=== PATIENT | male | born 1990 | race American Indian/Alaskan Native ===

== ENCOUNTER 2017-08-17 00:21 | Emergency (ER) | payer MEDICAID ==
[2017-08-17] MEDS ORDERED: MOTRIN PO ONE (00:45)
[2017-08-17 01:09] LABS: Hematocrit 42.8 % (35.5-45.6); Hemoglobin 14.4 gm/dl (11.8-15.2); Mean Corpuscular HGB Conc 34 % (32-34); Mean Corpuscular Hemoglobin 30 pg (28-32); Mean Corpuscular Volume 89 fl (84-94); Platelet Count 309 K/mm3 (140-440); Red Blood Count 4.83 M/mm3 (3.65-5.03); Red Cell Distribution Width 13.7 % (13.2-15.2); White Blood Count 4.2 K/mm3 (4.5-11.0)
[2017-08-17 01:11] LABS: Basophils % (Auto) 2.6 % (0.0-1.8); Eosinophils % (Auto) 1.6 % (0.0-4.3)
[2017-08-17 01:31] LABS: Anion Gap 21 mmol/L; BUN/Creatinine Ratio 12; Blood Urea Nitrogen 15 mg/dL (9-20); Calcium 8.9 mg/dL (8.4-10.2); Carbon Dioxide 21 mmol/L (22-30); Chloride 101.8 mmol/L (98-107); Potassium 3.9 mmol/L (3.6-5.0); Sodium 140 mmol/L (137-145)
[2017-08-17 01:37] LABS: Urine Drugs of Abuse Note Disclamer
[2017-08-17 01:51] LABS: Sperm,Urine 3+ /HPF (NP)
[2017-08-17 01:55] LABS: Bilirubin,Urine NEG (Negative)
[2017-08-17 01:56] LABS: Ketones,Urine Negative (Negative); Urobilinogen,Urine < 0.2 mg/dL (<2.0)
[2017-08-17 01:57] LABS: Leukocyte Esterase,Urine Negative (Negative); Nitrite,Urine Negative (Negative); Protein,Urine <30 mg dL mg/dL (Negative)
[2017-08-17 02:57] LABS: Glucose 85 mg/dL (75-100)
--- NOTE | 2017-08-17 04:52 | Emergency Department Report ---
HPI - General Chief Complaint: Psych Time Seen by Provider: 08/17/17 04:38 - HPI HPI: This is a 27-year-old male who presents to the emergency department with a complaint of a one-day history of suicidal and homicidal ideations. He denies any specific plan as to what he would do to hurt himself or other people. He also complains of some auditory hallucinations. He has a history of schizophrenia and says that he is compliant with his Risperdal and Zoloft. He does not have a psychiatrist for follow-up. As a secondary complaint, he says he has been having some right lower pain for the past 2 weeks. He denies any problems with bowel or bladder, numbness or paresthesias or any neurological deficits. He has not taken anything for his symptoms prior to presentation. ED Past Medical Hx - Past Medical History Hx Seizures: Yes Hx Psychiatric Treatment: Yes (schizophrenia) Hx Asthma: Yes - Surgical History Additional Surgical History: left knee surgery - Social History Smoking Status: Current Every Day Smoker Substance Use Type: Cocaine - Medications Home Medications: Home Medications Medication Instructions Recorded Confirmed Last Taken Type RisperDAL 6 mg PO DAILY 08/17/17 08/17/17 Unknown History Zoloft 40 mg PO DAILY 08/17/17 08/17/17 Unknown History ED Review of Systems ROS: Stated complaint: MH & BACK PAINS Other details as noted in HPI Comment: All other systems reviewed and negative Constitutional: denies: chills, fever Eyes: denies: eye pain, eye discharge, vision change ENT: denies: ear pain, throat pain Respiratory: denies: cough, shortness of breath, wheezing Cardiovascular: denies: chest pain, palpitations Gastrointestinal: denies: abdominal pain, nausea, diarrhea Genitourinary: denies: urgency, dysuria Musculoskeletal: back pain. denies: arthralgia Skin: denies: rash, lesions Neurological: denies: headache, numbness Psychiatric: auditory hallucinations, homicidal thoughts, suicidal thoughts Physical Exam - Physical Exam Vital Signs: Vital Signs 08/17/17 08/17/17 00:25 04:37 Temperature 97.6 F Pulse Rate 79 Respiratory 18 18 Rate Blood Pressure 115/75 O2 Sat by Pulse 97 98 Oximetry Physical Exam: GENERAL: The patient is well-developed well-nourished. HENT: Normocephalic. Atraumatic. Patient has moist mucous membranes. EYES: Extraocular motions are intact. Pupils equal reactive to light bilaterally. NECK: Supple. Trachea is midline. CHEST/LUNGS: Clear to auscultation. There is no respiratory distress noted. HEART/CARDIOVASCULAR: Regular. There is no tachycardia. There is no gallop rub or murmur. ABDOMEN: Abdomen is soft, nontender. Patient has normal bowel sounds. There is no abdominal distention. SKIN: Skin is warm and dry. NEURO: The patient is awake, alert, and oriented. The patient is cooperative. The patient has no focal neurologic deficits. The patient has normal speech. MUSCULOSKELETAL: There is no tenderness or deformity. There is no limitation range of motion. There is no evidence of acute injury. BACK: No midline thoracic or lumbar tenderness to palpation or deformity. There is some reproducible right lumbar paraspinal tenderness with some associated musculature. ED Course Vital Signs 08/17/17 08/17/17 00:25 04:37 Temperature 97.6 F Pulse Rate 79 Respiratory 18 18 Rate Blood Pressure 115/75 O2 Sat by Pulse 97 98 Oximetry ED Medical Decision Making - Lab Data Result diagrams: 08/17/17 00:48 08/17/17 00:48 - Medical Decision Making 27-year-old male presents with a history of schizophrenia and a one-day history of suicidal and homicidal ideations. For this reason he has been made a 1013. His labs are mostly unremarkable except for positive urine drug screen for cocaine which he admits to using earlier today. He complains of some back pain but there is no midline tenderness to palpation, step-off or deformity. There is some reproducible right paraspinal lumbar tenderness with associated musculature. He denies any problems with bowel or bladder, numbness or paresthesias. Vital signs stable including being afebrile. He appears low suspicion for any of the emergent back condition such as cauda equina, epidural abscess or cord compression syndrome. He appears stable and medically cleared for psychiatric placement. - Differential Diagnosis schizophrenia, schizoaffective, bipolar, substance abuse, muscle spasm Critical Care Time: No Critical care attestation.: If time is entered above; I have spent that time in minutes in the direct care of this critically ill patient, excluding procedure time. ED Disposition Clinical Impression: Suicidal ideations, Homicidal ideations Schizophrenia Qualifiers: Schizophrenia type: unspecified Qualified Code(s): F20.9 - Schizophrenia, unspecified Disposition: DC/TX-65 PSY HOSP/PSY UNIT Is pt being admited?: No Condition: Stable Referrals: PRIMARY CARE, [Primary Care Provider] - 3-5 Days Time of Disposition: 04:52
[2017-08-17] MEDS ORDERED: RISPERIDONE 6 MG PO SCH (10:00)
[2017-08-17] MEDS ORDERED: ZOLOFT PO SCH (10:00)
[2017-08-17] MEDS ORDERED: RisperDAL PO SCH (10:00)
[2017-08-17] MEDS ORDERED: SERTRALINE PO SCH (10:00)
[2017-08-17 11:43] VITALS: BP 134/66
== END 2017-08-17 20:38 ==
LOC: ED 00:21 → EEVIPCON 00:21 → ED 20:38
DX: R45.851 Suicidal ideations (principal); R45.850 Homicidal ideations; J45.909 Unspecified asthma, uncomplicated; F17.200 Nicotine dependence, unspecified, uncomplicated
CPT/HCPCS: 36415; 80048; 80307; 81001; 85025; 99285; G0480; 80320

== ENCOUNTER 2017-09-02 01:06 | Emergency (ER) | payer MEDICAID ==
[2017-09-02 01:44] LABS: Basophils % (Auto) 1.4 % (0.0-1.8); Eosinophils % (Auto) 2.5 % (0.0-4.3); Mean Corpuscular HGB Conc 34 % (32-34); Mean Corpuscular Hemoglobin 30 pg (28-32); Mean Corpuscular Volume 88 fl (84-94); Platelet Count 316 K/mm3 (140-440); Red Cell Distribution Width 13.8 % (13.2-15.2); White Blood Count 7.7 K/mm3 (4.5-11.0)
[2017-09-02 01:59] LABS: Urine Drugs of Abuse Note Disclamer
[2017-09-02 02:13] LABS: Potassium 3.9 mmol/L (3.6-5.0); Sodium 139 mmol/L (137-145)
[2017-09-02 02:14] LABS: Anion Gap 18 mmol/L; BUN/Creatinine Ratio 12; Blood Urea Nitrogen 13 mg/dL (9-20); Calcium 9.9 mg/dL (8.4-10.2); Carbon Dioxide 26 mmol/L (22-30); Chloride 98.8 mmol/L (98-107); Glucose 86 mg/dL (75-100)
[2017-09-02 02:23] LABS: Bilirubin,Urine NEG (Negative); Blood,Urine NEG (Negative); Ketones,Urine 20 mg/dL (Negative); Leukocyte Esterase,Urine NEG (Negative); Mucus,Urine FEW /HPF; Nitrite,Urine NEG (Negative); Protein,Urine <15 mg/dL mg/dL (Negative); Urobilinogen,Urine < 2.0 mg/dL (<2.0); WBC,Urine < 1.0 /HPF (0.0-6.0)
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
--- NOTE | 2017-09-02 22:10 | Consultation ---
History of Present Illness - Reason for Consult Reason for consult: recent passive SI after being kicked out of long-term Medications and Allergies Allergies Allergy/AdvReac Type Severity Reaction Status Date / Time No Known Allergies Allergy Verified 09/14/15 04:18 Home Medications Medication Instructions Recorded Confirmed Last Taken Type RisperDAL 6 mg PO DAILY 08/17/17 08/17/17 Unknown History Zoloft 50 mg PO DAILY 08/17/17 08/17/17 Unknown History Mental Status Exam - Vital signs Last Vital Signs Temp 98.4 F 09/02/17 12:02 Pulse 83 09/02/17 12:02 Resp 20 09/02/17 14:00 BP 134/79 09/02/17 12:02 Pulse Ox 100 09/02/17 14:00 Results Result Diagrams: 09/02/17 01:30 09/02/17 01:30 All other labs normal. Assessment and Plan Assessment and plan: CHIEF COMPLAINT IN PATIENTS WORDS: HISTORY OF PRESENT ILLNESS: This is a 27-year-old male with a reported past psychiatric history of schizophrenia who now presents secondary to recent expression of suicidal thoughts after being kicked out of the long-term. PSYCHIATRIC REVIEW OF SYSTEMS: Substance: UDS+ for cocaine Detoxification/Withdrawal: none noted Depression: Withdrawn, isolated, low moods. Sweta: no labile moods, not hyperverbal, no flight of ideas Psychosis: no AVH, no thought disorder noted, no paranoia/grandiosity/erotomania Anxiety/ OCD/ PTSD: denies somatic symptoms, flashbacks, nightmares, avoidance, panic attacks Suicidality: passive SI Other Self-Injurious Behavior: none currently, no recent SIB noted Violent/ Aggressive Behavior: none noted CURRENT MEDICATIONS: Medication Reconciliation pending Patient reports being on Risperidone and Zoflot ALLERGIES: NKDA PAST PSYCHIATRIC HISTORY: Inpatient: previous IP admissions Outpatient: has psychiatrist Prior Suicide Attempts: unknown Prior Self-Injurious Behaviors: unknown PAST PSYCHIATRIC MEDICATION TRIALS: Risperidone Zoloft MEDICAL HISTORY: denies MENTAL STATUS EXAM: General Appearance: Dressed in hospital gown, no acute distress Sensorium/Consciousness: alert and responding to external stimuli Eye Contact: limited Attitude / Behavior: cooperative, but guarded Psychomotor & Musculoskeletal Activity: WNL Mood: fine Affect: constricted Speech / Language: normal Thought Processes: organized, logical, linear, goal directed Thought Content: passove SI, no HI Perception: no AVH Orientation: person, place, time, situation Judgment What would you do if you smelled smoke in a crowded movie theater?: poor/impulsive Insight: poor Intelligence Vocabulary, general fund of knowledge, educational level: Average Capacity of ADLs: Independent STRENGTHS: PSYCHOSOCIAL AND ENVIRONMENTAL STRESSORS: ASSESSMENT: Schizophrenia R/O SIPD PLAN OF CARE: Refer patient for inpatient hospitalization Nursing to reconcile home medications If nursing unable to reconcile the medication, restart risperidone and sertraline at a low dose
[2017-09-03 03:59] VITALS: BP 121/62
== END 2017-09-03 03:59 ==
LOC: ED 01:06
DX: F29 Unspecified psychosis not due to a substance or known physiological condition (principal); F14.10 Cocaine abuse, uncomplicated; F20.9 Schizophrenia, unspecified; R45.851 Suicidal ideations; R45.850 Homicidal ideations; J45.909 Unspecified asthma, uncomplicated; F17.200 Nicotine dependence, unspecified, uncomplicated
CPT/HCPCS: 36415; 80048; 80307; 81001; 85025; 99285; G0480; 80320

== ENCOUNTER 2017-09-24 12:30 | Emergency (ER) | payer MEDICAID ==
[2017-09-24] MEDS ORDERED: BENADRYL IM ONE (13:57)
[2017-09-24 14:01] LABS: Urine Drugs of Abuse Note Disclamer
[2017-09-24 14:10] LABS: Bilirubin,Urine NEG (Negative); Blood,Urine NEG (Negative); Ketones,Urine NEG (Negative); Leukocyte Esterase,Urine NEG (Negative); Mucus,Urine FEW /HPF; Nitrite,Urine NEG (Negative); Protein,Urine <15 mg/dL mg/dL (Negative); Urobilinogen,Urine < 2.0 mg/dL (<2.0)
[2017-09-24 14:29] LABS: Eosinophils % (Auto) 4.7 % (0.0-4.3); Hematocrit 46.2 % (35.5-45.6); Hemoglobin 15.4 gm/dl (11.8-15.2); Mean Corpuscular HGB Conc 33 % (32-34); Mean Corpuscular Hemoglobin 30 pg (28-32); Mean Corpuscular Volume 90 fl (84-94); Platelet Count 290 K/mm3 (140-440); Red Blood Count 5.13 M/mm3 (3.65-5.03); Red Cell Distribution Width 14.5 % (13.2-15.2); White Blood Count 3.7 K/mm3 (4.5-11.0)
[2017-09-24 14:54] LABS: Anion Gap 20 mmol/L; BUN/Creatinine Ratio 9; Blood Urea Nitrogen 10 mg/dL (9-20); Calcium 9.2 mg/dL (8.4-10.2); Carbon Dioxide 24 mmol/L (22-30); Glucose 82 mg/dL (75-100); Potassium 4.5 mmol/L (3.6-5.0); Sodium 141 mmol/L (137-145)
[2017-09-24 15:29] LABS: INR 0.98 (0.87-1.13)
--- NOTE | 2017-09-24 19:05 | Emergency Department Report ---
HPI - General Chief Complaint: Allergic Reaction ED Past Medical Hx - Past Medical History Hx Seizures: Yes Hx Psychiatric Treatment: Yes (schizophrenia) Hx Asthma: Yes - Surgical History Additional Surgical History: left knee surgery - Social History Smoking Status: Never Smoker Substance Use Type: None - Medications Home Medications: Home Medications Medication Instructions Recorded Confirmed Last Taken Type RisperDAL 6 mg PO DAILY 08/17/17 09/15/17 Unknown History Zoloft 50 mg PO DAILY 08/17/17 09/15/17 Unknown History ED Review of Systems ROS: Stated complaint: MUSCLE SPASM Other details as noted in HPI Physical Exam - Physical Exam Vital Signs: Vital Signs 09/24/17 13:33 Temperature 98 F Pulse Rate 103 H Respiratory 16 Rate Blood Pressure 125/71 O2 Sat by Pulse 100 Oximetry ED Course Vital Signs 09/24/17 13:33 Temperature 98 F Pulse Rate 103 H Respiratory 16 Rate Blood Pressure 125/71 O2 Sat by Pulse 100 Oximetry ED Medical Decision Making - Lab Data Result diagrams: 09/24/17 Unknown 09/24/17 13:41 Critical care attestation.: If time is entered above; I have spent that time in minutes in the direct care of this critically ill patient, excluding procedure time. ED Disposition Condition: Stable Referrals: PRIMARY CARE, [Primary Care Provider] - 3-5 Days
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
[2017-09-24 19:53] LABS: Anion Gap 17 mmol/L; BUN/Creatinine Ratio 8; Blood Urea Nitrogen 10 mg/dL (9-20); Calcium 9.1 mg/dL (8.4-10.2); Carbon Dioxide 26 mmol/L (22-30); Chloride 105.6 mmol/L (98-107); Glucose 58 mg/dL (75-100); Potassium 4.2 mmol/L (3.6-5.0); Sodium 144 mmol/L (137-145)
[2017-09-24 19:56] LABS: Alanine Aminotransferase 21 units/L (7-56); Albumin 3.9 g/dL (3.9-5); Albumin/Globulin Ratio 1.7 %; Alkaline Phosphatase 71 units/L (35-129); Total Protein 6.2 g/dL (6.3-8.2)
[2017-09-24 19:58] LABS: Bilirubin,Direct < 0.2 mg/dL (0-0.2); Bilirubin,Indirect 0.1 mg/dL
[2017-09-24 22:06] LABS: Urine Drugs of Abuse Note Disclamer
[2017-09-24 22:14] LABS: Bilirubin,Urine NEG (Negative); Blood,Urine NEG (Negative); Ketones,Urine NEG (Negative); Leukocyte Esterase,Urine NEG (Negative); Mucus,Urine FEW /HPF; Nitrite,Urine NEG (Negative); Protein,Urine <15 mg/dL mg/dL (Negative); Urobilinogen,Urine < 2.0 mg/dL (<2.0); WBC,Urine < 1.0 /HPF (0.0-6.0)
[2017-09-25 10:01] VITALS: BP 120/68
--- NOTE | 2017-09-25 12:31 | Consultation ---
History of Present Illness - Reason for Consult Consult date: 09/25/17 Reason for consult: Mental Health Evaluation Requesting physician: SCOTT ADLER - Chief Complaint Chief complaint: "The voices are bad" - History of Present Psychiatric Illness 27 y.o. AA male presenting to [facility] for for SI's and overdose. Today patient is calm and cooperative, but withdrawn during the assessment. He stated taking 20 Lexapro pills to kill himself. He stated that the voices was telling him to do it. He stated that he hear voices "all the time." He stated that he didn't have any other choices, but to . He stated previous suicide attempts in the past. He stated that he is still suicidal with a plan to walk into ongoing traffic. He stated being noncompliant with his medications and was recently discharged from a mental health facility. He denies HI's and VH's. He denies sleep disturbance and a poor appetite. He admit to using cocaine often. He denies alcohol consumption (etoh). Medications and Allergies Allergies Allergy/AdvReac Type Severity Reaction Status Date / Time No Known Allergies Allergy Verified 09/14/15 04:18 Home Medications Medication Instructions Recorded Confirmed Last Taken Type RisperDAL 6 mg PO DAILY 08/17/17 09/24/17 09/24/17 History Zoloft 50 mg PO DAILY 08/17/17 09/24/17 09/24/17 History Past psychiatric history - Past Medical History Past Medical History: seizures, other (Asthma) Past Surgical History: No surgical history - past Psychiatric treatment and history Psych: Schizophrenia psychiatric treatment history: Multiple inpatient settings. Denies a fam psy hx. - Social History Social history: other (Resides in a intermediate) Mental Status Exam - Vital signs Last Vital Signs Temp 98.7 F 09/25/17 09:59 Pulse 99 H 09/25/17 09:59 Resp 18 09/25/17 10:02 BP 120/68 09/25/17 09:59 Pulse Ox 96 09/25/17 10:02 - Exam Narrative exam: MSE: Appearance: calm, cooperative Behavior: regular eye contact Speech: regular rate and tone Mood: "okay" withdrawn Affect: labile Thought Process: circumstantial Thought Content: denies HI's and VH's, disorganized Motor Activity: ambulatory Cognition: A/Ox 3 Insight: poor Judgment: poor Results Result Diagrams: 09/24/17 Unknown 09/24/17 19:19 Abnormal lab results 09/24/17 09/24/17 09/24/17 Range/Units 19:19 19:19 Unknown WBC 3.7 L (4.5-11.0) K/mm3 RBC 5.13 H (3.65-5.03) M/mm3 Hgb 15.4 H (11.8-15.2) gm/dl Hct 46.2 H (35.5-45.6) % Eos % (Auto) 4.7 H (0.0-4.3) % Lymph # 1.0 L (1.2-5.4) K/mm3 Glucose 58 L (75-100) mg/dL Total Protein 6.2 L (6.3-8.2) g/dL All other labs normal. Assessment and Plan Assessment and plan: Impression: Schizophrenia. Substance Use DO (cocaine). Today patient is calm and cooperative, but withdrawn during the assessment. Patient endorsing SI's. QTC 449. DDx: R/O Schizoaffective DO, Substance Induced Mood/Psychosis DO Recommendation/Plan: Continue 1013 with placement to inpatient psy services. Start Zyprexa 5 mg PO HS for psychosis/mood and Cogentin 0.5 mg PO HS for EPS prevention. Discussed possible metabolic side effects with patient reference Zyprexa.
[2017-09-25] MEDS ORDERED: COGENTIN PO SCH (22:00)
== END 2017-09-25 18:15 ==
LOC: ED 12:30
DX: T50.902A Poisoning by unspecified drugs, medicaments and biological substances, intentional self-harm, initial encounter (principal); T14.91XA Suicide attempt, initial encounter; F20.0 Paranoid schizophrenia; J45.909 Unspecified asthma, uncomplicated; Y92.9 Unspecified place or not applicable
CPT/HCPCS: 36415; 80048; 80074; 80307; 81001; 85025; 85610; 93005; 93010; 96372; 99285; G0480; J1200; 80320

== ENCOUNTER 2017-09-24 18:22 | Emergency (ER) | payer MEDICAID | END 2017-09-24 18:33 | disposition left against medical advice (07) | LOC: ED 18:22 | DX: Z53.21 Procedure and treatment not carried out due to patient leaving prior to being seen by health care provider (principal) ==